=== PATIENT | female | born 1975 | race Native Hawaiian/Other Pacific Islander ===

== ENCOUNTER 2016-06-09 20:53 | Emergency (ER) | payer OTHER ==
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
[2016-06-10] MEDS ORDERED: MOTRIN PO ONE (01:54)
[2016-06-10 01:55] VITALS: BP 113/68
== END 2016-06-10 02:18 | disposition home or self-care (01) ==
LOC: ED 20:53
DX: S39.012A Strain of muscle, fascia and tendon of lower back, initial encounter (principal); V49.50XA Passenger injured in collision with unspecified motor vehicles in traffic accident, initial encounter; Y93.89 Activity, other specified; Y92.89 Other specified places as the place of occurrence of the external cause; Y99.8 Other external cause status
CPT/HCPCS: 99282